=== PATIENT | male | born 1960 | race African-American/Black ===

== ENCOUNTER 2020-04-27 10:00 | Emergency (ER) | payer SELFPAY ==
[~2020-04-27] VITALS: Ht 190.5 cm; Wt 72.7 kg
[2020-04-27 10:05] VITALS: Ht 190.5 cm; Wt 72.7 kg
[2020-04-27 10:37] LABS: BASOPHILS 0.4 % (0-2); EOSINOPHILS 0.9 % (0-7); HEMATOCRIT 43.5 % (42.0-54.0); HEMOGLOBIN 14.9 g/dL (13.5-17.5); IMMATURE GRANULOCYTES 0.2 % (0-5); LYMPHOCYTES 47.5 % (15-50); MCH 28.9 pg (26.0-34.0); MCHC 34.3 g/dL (31.0-37.0); MCV 84.5 fL (80.0-100.0); MEAN PLATELET VOLUME 9.1 fL (7.4-10.4); MONOCYTES 9.2 % (2-11); NEUTROPHILS 41.8 % (40-80); PLATELET COUNT 296 10x3/uL (130-400); RBC 5.15 10x6/uL (4.20-6.10); RDW 14.6 % (11.5-14.5); WBC 11.3 10x3/uL (4.8-10.8)
[2020-04-27 10:41] LABS: BILIRUBIN NEGATIVE (NEGATIVE); KETONE LARGE mg/dL (NEGATIVE); NITRITE NEGATIVE (NEGATIVE); UROBILINOGEN NORMAL mg/dL (< 2)
[2020-04-27 10:43] LABS: BACTERIA FEW HPF (NONE SEEN); WHITE CELLS - URINE 0-5 HPF (0-1)
[2020-04-27 10:47] LABS: CALC OSMOLALITY 275 mosm/kg (275-300); CALCIUM 9.1 mg/dL (8.5-10.1); CARBON DIOXIDE 29.6 mmol/L (21.0-32.0); CHLORIDE - SERUM 102 mmol/L (98-107); CREATININE - SERUM 1.1 mg/dL (0.6-1.3); GLUCOSE 109 mg/dL (74-106); POTASSIUM - SERUM 3.3 mmol/L (3.5-5.1); SODIUM 137 mmol/L (136-145); UREA NITROGEN 14 mg/dL (7-18); eGFR NON AFRICAN AMERICAN 72 mL/min (90-120)
[2020-04-27 10:56] LABS: ALBUMIN 3.7 g/dL (3.4-5.0); ALKALINE PHOSPHATASE 87 U/L (30-120); ALT (SGPT) 20 U/L (10-68); AMYLASE - SERUM 50 U/L (25-115); BILIRUBIN - TOTAL 0.54 mg/dL (0.2-1.3); LIPASE 83 U/L (73-393); PROTEIN - SERUM 8.2 g/dL (6.4-8.2)
[2020-04-27 11:02] LABS: TROPONIN-I < 0.017 ng/mL (0.000-0.060)
[2020-04-27] MEDS ORDERED: PEPCID40 MG PO (12:02)
[2020-04-27] MEDS ORDERED: ZOFRAN ODT4 MG/UDTAB PO (12:02)
[2020-04-27 13:38] VITALS: BP 145/76
== END 2020-04-27 13:39 | disposition home or self-care (01) ==
LOC: D.ER 10:00
PROVIDERS: Family Medicine
DX: R10.9 Unspecified abdominal pain (principal); K29.70 Gastritis, unspecified, without bleeding; R31.9 Hematuria, unspecified; R73.9 Hyperglycemia, unspecified; E87.6 Hypokalemia; D72.829 Elevated white blood cell count, unspecified; N28.1 Cyst of kidney, acquired; J06.9 Acute upper respiratory infection, unspecified; Z72.0 Tobacco use